=== PATIENT | female | born 1930 | race Hispanic/Latino ===

== ENCOUNTER 2017-09-18 18:42 | Inpatient (IN) | payer MEDICARE, OTHER ==
[2017-09-18] MEDS ORDERED: Sodium Chloride 0.9% 1,000 ML IV STA ×2 (19:37→23:40)
[2017-09-18 20:07] LABS: BASO # 0.02 K/mm3 (0.0-2.0); BASO % 0.2 % (0.0-3.0); EOS # 0.1 (0.0-0.7); EOS % 0.6 % (1.5-5.0); GRAN # 9.95 (1.4-6.5); GRAN % 80.4 % (50.0-68.0); HEMATOCRIT 29.4 % (36.0-48.0); LYMPH # 1.2 (1.2-3.4); LYMPH % 9.4 % (22.0-35.0); MEAN CELL VOLUME 76.2 fl (80.0-105.0); MEAN CORPUSCULAR HEMOGLOBIN 23.1 pg (25.0-35.0); MEAN CORPUSCULAR HGB CONC 30.3 g/dl (31.0-37.0); MEAN PLATELET VOLUME 8.9 fl (7.0-11.0); MONO # 1.2 (0.1-0.6); MONO % 9.4 % (1.0-6.0); RED CELL DISTRIBUTION WIDTH 16.7 % (11.5-14.5); WHITE BLOOD COUNT 12.4 10^3/ul (4.5-11.0)
[2017-09-18 20:21] LABS: ALB/GLOB RATIO 1.1 (1.1-1.8); ALKALINE PHOSPHATASE 78 U/L (38-126); ALT/SGPT 25 U/L (7-56); AST/SGOT 25 U/L (14-36); BILIRUBIN,TOTAL 0.8 mg/dL (0.2-1.3); BLOOD UREA NITROGEN 12 mg/dL (7-21); CALCIUM 10.8 mg/dL (8.4-10.5); CARBON DIOXIDE 32 mmol/L (21-33); CHLORIDE 94 mmol/L (98-107); GFR AFRICAN-AMERICAN > 60; GLUCOSE,RANDOM 191 mg/dL (70-110); POTASSIUM 3.9 mmol/L (3.6-5.0); SODIUM 134 mmol/L (132-148); TOTAL PROTEIN 5.9 g/dL (5.8-8.3)
[2017-09-18 20:23] LABS: INR 1.33 (0.93-1.08); PARTIAL THROMBOPLASTIN TIME 29.2 Seconds (25.1-36.5)
[2017-09-18 20:37] LABS: TROPONIN I < 0.01 ng/mL
--- NOTE | 2017-09-18 21:47 | CT ---
EXAM: CT Head Without Intravenous Contrast CLINICAL HISTORY: 87 years old, female; Injury or trauma; Fall; Initial encounter; Sprain or strain; Additional info: Recent fall TECHNIQUE: Axial computed tomography images of the head/brain without intravenous contrast. All CT scans at this facility use one or more dose reduction techniques, viz.: automated exposure control; ma/kV adjustment per patient size (including targeted exams where dose is matched to indication; i.e. head); or iterative reconstruction technique. COMPARISON: No relevant prior studies available. FINDINGS: Brain: No acute intracranial hemorrhage. Age-appropriate periventricular white matter disease. No edema. 9 x 12 mm dural based calcified focus within the left posterior parietal lobe, likely representing a meningioma. Ventricles: Age-appropriate ventriculomegaly. Bones: No acute displaced fracture. Sinuses: Unremarkable as visualized. No acute sinusitis. Mastoid air cells: Unremarkable as visualized. No mastoid effusion. IMPRESSION: No acute intracranial hemorrhage, or suspicious mass effect. Findings within the left cerebral hemisphere suggesting a small calcified meningioma for which comparison with prior imaging is suggested.
--- NOTE | 2017-09-18 21:52 | CT ---
EXAM: CT Pelvis Without Intravenous Contrast CLINICAL HISTORY: 87 years old, female; Injury or trauma; Fall; Initial encounter; Sprain or strain; Bilateral; Pelvic region; Additional info: R/O frx TECHNIQUE: Axial computed tomography images of the pelvis without intravenous contrast. All CT scans at this facility use one or more dose reduction techniques, viz.: automated exposure control; ma/kV adjustment per patient size (including targeted exams where dose is matched to indication; i.e. head); or iterative reconstruction technique. Coronal and sagittal reformatted images were created and reviewed. COMPARISON: CT - ABD PELVIS PO IV CONTRAST 2016-12-17 11:23 FINDINGS: Bowel: No obstruction. No mucosal thickening. Appendix: The appendix is not definitively visualized, however no pericecal inflammatory change is identified to suggest the presence of acute appendicitis. Intraperitoneal space: Soft tissue attenuation mass within the left retroperitoneum, extending to the pelvis. This mass demonstrates mass effect on the adjacent intraperitoneal cavity. Bladder: Thickened and irregular. Reproductive: Calcified fibroids. Bones/joints: No acute fracture. Within the left iliac bone, are multiple lytic and sclerotic lesions with associated soft tissue attenuation mass, largely unchanged from 12/17/2016. Soft tissues: Moderate anasarca. Vasculature: Calcified atherosclerotic disease. No lower abdominal aortic aneurysm. No pathologically enlarged lymph nodes. IMPRESSION: No acute fracture. Progression of the previously noted soft tissue attenuation mass within the left retroperitoneum with adjacent lytic and sclerotic change in the left iliac bone.
--- NOTE | 2017-09-18 22:27 | ED PDOC ---
Arrival/HPI - General Chief Complaint: Weakness/Neurological Deficit Time Seen by Provider: 09/18/17 18:46 Historian: Patient, Family, Other (Home health aid) - History of Present Illness Narrative History of Present Illness (Text): 09/18/17 18:56 87 year old female, whose past medical history includes, colon cancer, chronic constipation, early dementia, hypertension, and flank mass, pathology otherwise not specified, presents to the emergency department for alteration of menial status in which she was found to be slightly confused and talking about her parents. In other inappropriate statements, there was several days increasingly bed bound, insomnolent, decreased PO intact, and worsening weakness. There is also consistent complaints of right shoulder pain, right hip and upper lateral thigh pain. On note, patient herself anal x3 now compliant of inability to walk. She states "she hasn't walked since " and overwhelming weakness. Family noted 1/2 weeks ago numerous falls with possible head trauma. None with loss of consciousness. Patient is refusing any medical attention at this time. Also note, patient son had been giving her possibly Opiod pain medicine last night that has not been prescribed to her specifically. Home health aid states patient has suffered two melenic bowel movements. Time/Duration: Other (today) Symptom Onset: Gradual Symptom Course: Unchanged Activities at Onset: Light Context: Home Past Medical History - Provider Review Nursing Documentation Reviewed: Yes - Infectious Disease Hx of Infectious Diseases: None - Cardiac Hx Hypertension: Yes - Pulmonary Hx Respiratory Disorders: Yes Hx Emphysema: Yes Hx Pneumonia: Yes (x 3 last episode 6 years ago) - Neurological Hx Neurological Disorder: No - HEENT Hx HEENT Disorder: Yes Hx Cataracts: Yes (Bilateral IOL) - Renal Hx Renal Disorder: No - Endocrine/Metabolic Hx Endocrine Disorders: Yes Hx Diabetes Mellitus Type 2: Yes - Hematological/Oncological Hx Blood Disorders: Yes Hx Blood Transfusions: Yes (During shoulder sx) Hx Blood Transfusion Reaction: No Hx Shingles: Yes (years ago) - Integumentary Hx Dermatological Disorder: Yes Other/Comment: Dry skin - Musculoskeletal/Rheumatological Hx Musculoskeletal Disorders: Yes Hx Arthritis: Yes Hx Fractures: Yes (Right shoulder) - Gastrointestinal Hx Gastrointestinal Disorders: Yes Hx Gall Bladder Disease: Yes Other/Comment: Constipation. Colon CA- New diagnosis - Genitourinary/Gynecological Hx Genitourinary Disorders: Yes Other/Comment: Vaginal fistula post delivery, Dysuria - Psychiatric Hx Psychophysiologic Disorder: No Hx Substance Use: No - Surgical History Hx Cataract Extraction: Yes Hx Cholecystectomy: Yes Hx Orthopedic Surgery: Yes (Right shoulder ORIF) - Anesthesia Hx Anesthesia: Yes Hx Anesthesia Reactions: No Hx Malignant Hyperthermia: No Family/Social History - Physician Review Nursing Documentation Reviewed: Yes Smoking Status: Former Smoker Hx Alcohol Use: No Hx Substance Use: No Allergies/Home Meds Allergies/Adverse Reactions: Allergies No Known Allergies Allergy (Verified 09/18/17 18:53) Home Medications: Home Meds Medication Instructions Recorded Confirmed Glimepiride [Amaryl] 4 mg PO BID 11/30/16 09/18/17 Sitagliptin Phos/Metformin HCl 1 tab PO BID 11/30/16 09/18/17 [Janumet 50-1,000 mg Tablet] Mv,Min10/Folic Acid/D3/Ala/Lut 1 tab PO DAILY 09/18/17 09/18/17 [Strovite One Caplet] Tramadol HCl/Acetaminophen 37.5 mg PO TID 09/18/17 09/18/17 [Tramadol-Acetaminophn 37.5-325] Review of Systems - Physician Review All systems were reviewed & negative as marked: Yes - Review of Systems Systems not reviewed;Unavailable: Dementia (Confused) Constitutional: Normal Respiratory: Normal Gastrointestinal: Appetite Changes Genitourinary Female: absent: Dysuria, Frequency, Hematuria Musculoskeletal: Other (Right shoulder pain, right hip and right upper lateral thigh pain) Neurological: Gait Changes, Other (weakness). absent: Headache, Dizziness Physical Exam Vital Signs Temp Pulse Resp BP Pulse Ox 09/18/17 20:45 93 H 20 145/71 99 09/18/17 19:52 99.6 F 09/18/17 18:45 98.8 F 110 H 20 152/88 H 92 L Temperature: Afebrile Blood Pressure: Hypertensive Pulse: Tachycardic Respiratory Rate: Normal Appearance: Positive for: Well-Appearing, Non-Toxic Pain Distress: None Mental Status: Positive for: Alert and Oriented X 3 Finger Stick Blood Glucose: 249 - Systems Exam Head: Present: Atraumatic, Normocephalic Pupils: Present: PERRL Extroacular Muscles: Present: EOMI Conjunctiva: Present: Normal Mouth: Present: Dry (Mucosa pallad d) Neck: Present: Normal Range of Motion Respiratory/Chest: Present: Clear to Auscultation, Good Air Exchange. No: Respiratory Distress, Accessory Muscle Use Cardiovascular: Present: Murmurs (4/6 Systolic ejection murmur left sternal boarder), Normal S1, S2 Abdomen: Present: Normal Bowel Sounds. No: Tenderness, Distention, Peritoneal Signs Rectal: Present: Other (Guacic negative. Medium Brown Stool) Back: Present: Normal Inspection Upper Extremity: Present: Normal Inspection. No: Cyanosis, Edema Lower Extremity: Present: Normal Inspection, Other (Right hip tenderness to palpation. No pain internal/external rotation or axial loading). No: Edema Neurological: Present: GCS=15, CN II-XII Intact, Speech Normal Skin: Present: Warm, Dry, Normal Color. No: Rashes Psychiatric: Present: Alert, Oriented x 3, Normal Insight, Normal Concentration Medical Decision Making ED Course and Treatment: 09/18/17 18:56 Impression: 87 year old female presents for weakness/neurological deficits. Patient also comlains of right shoulder pain and right hip upper lateral thigh pain Plan: -- CT Head -- CT Pelvis -- Labs -- Chest One view -- IV Fluids -- Blood Culture -- IV Fluids -- Blood Culture -- Urine Culture -- Hip Right X-ray -- Pelvis x-ray -- Shoulder right x-ray -- Urinalysis -- Reassess and disposition Progress Notes: - Lab Interpretations Lab Results: 09/18/17 18:50 09/18/17 18:50 Lab Results 09/18/17 18:55: POC Glucose (mg/dL) 246 H 09/18/17 18:50: Sodium 134, Potassium 3.9, Chloride 94 L, Carbon Dioxide 32, Anion Gap 12, BUN 12, Creatinine 0.8, Est GFR ( Amer) > 60, Est GFR (Non- Af Amer) > 60, Random Glucose 191 H, Calcium 10.8 H, Total Bilirubin 0.8, AST 25 , ALT 25, Alkaline Phosphatase 78, Troponin I < 0.01, Total Protein 5.9, Albumin 3.0, Globulin 2.8, Albumin/Globulin Ratio 1.1 09/18/17 18:50: PT 14.6 H, INR 1.33 H, APTT 29.2 09/18/17 18:50: WBC 12.4 H D, RBC 3.86, Hgb 8.9 L, Hct 29.4 L, MCV 76.2 L, MCH 23.1 L, MCHC 30.3 L, RDW 16.7 H, Plt Count 370, MPV 8.9, Gran % 80.4 H, Lymph % (Auto) 9.4 L, Walker % (Auto) 9.4 H, Eos % (Auto) 0.6 L, Baso % (Auto) 0.2, Gran # 9.95 H, Lymph # 1.2, Walker # 1.2 H, Eos # 0.1, Baso # 0.02 - RAD Interpretation Radiology Orders: 09/18/17 19:33 HEAD W/O CONTRAST [CT] Stat 09/18/17 19:34 CHEST ONE VIEW [RAD] Stat 09/18/17 19:36 Hip Right [HIP MIN 2V W/ PELVIS RT] [RAD] Stat 09/18/17 19:38 PELVIS W/O PO OR IV CONTRAST [CT] Stat 09/18/17 20:17 SHOULDER RIGHT [RAD] Stat - Medication Orders Current Medication Orders: Discontinued Medications Acetaminophen (Tylenol 325mg Tab) 650 mg PO ONCE ONE Stop: 09/18/17 19:38 Last Admin: 09/18/17 19:52 Dose: 650 mg MAR Pain/Vitals Document 09/18/17 19:52 JOL (Rec: 09/18/17 19:52 JOL [id number]) Vitals Temperature (97.6 F-99.6 F) 99.6 F Temperature Source Rectal Sodium Chloride (Sodium Chloride 0.9%) 1,000 mls @ 999 mls/hr IV .Q1H1M STA Stop: 09/18/17 20:37 Last Admin: 09/18/17 19:52 Dose: 999 mls/hr eMAR Start Stop Document 09/18/17 19:52 JOL (Rec: 09/18/17 19:52 JOL [id number]) Intravenous Solution Start Date 09/18/17 Start Time 19:52 End Date 09/18/17 End time 20:53 Total Infusion Time 61 - Scribe Statement The provider has reviewed the documentation as recorded by the Scribe Abiel Jaime All medical record entries made by the Scribe were at my direction and personally dictated by me. I have reviewed the chart and agree that the record accurately reflects my personal performance of the history, physical exam, medical decision making, and the department course for this patient. I have also personally directed, reviewed, and agree with the discharge instructions and disposition. Disposition/Present on Arrival - Present on Arrival History of DVT/PE: No History of Uncontrolled Diabetes: No Urinary Catheter: No History of Decub. Ulcer: No History Surgical Site Infection Following: None - Disposition Referrals: Tano Egan MD [Primary Care Provider] - Follow up with primary Forms: [employer] (Yoruba)
[2017-09-18 23:02] LABS: URINE BILIRUBIN SMALL (NEGATIVE); URINE BLOOD NEGATIVE (NEGATIVE); URINE GLUCOSE (UA) NEGATIVE (NEGATIVE); URINE KETONE 15 mg/dL (NEGATIVE); URINE LEUKOCYTE ESTERASE NEGATIVE Leu/uL (NEGATIVE); URINE PROTEIN 30 mg/dL (<30 mg/dL)
[2017-09-18 23:09] LABS: URINE APPEARANCE CLEAR (CLEAR); URINE COLOR LIGHT YELLOW (YELLOW)
[2017-09-18 23:42] LABS: URINE BACTERIA TRACE (NEG); URINE RBC 0 - 2 /hpf (0-2)
[2017-09-19 03:11] VITALS: BMI 27.3
--- NOTE | 2017-09-19 08:51 | RAD ---
PROCEDURE: CHEST RADIOGRAPH, 1 VIEW HISTORY: routin emex exam COMPARISON: 04/01/2016. FINDINGS: LUNGS: The lungs are well inflated. There is diffuse pulmonary venous congestion and interstitial thickening. There is an apparent 2.3 cm round opacity in the left upper lobe. PLEURA: No pneumothorax or pleural fluid seen. CARDIOVASCULAR: The heart is normal in size. Atherosclerotic aortic arch calcifications are present. OSSEOUS STRUCTURES: Status post right shoulder arthroplasty. There is degenerative osteoarthrosis in the left glenohumeral joint VISUALIZED UPPER ABDOMEN: Normal. OTHER FINDINGS: None. IMPRESSION: Mild pulmonary venous congestion and interstitial disease. Apparent 2.3 cm round opacity in the left upper lobe, CT scan of the thorax without intravenous contrast is recommended for further evaluation. The final report was tagged to the PA review folder.
[2017-09-19 09:29] LABS: HEMATOCRIT 27.6 % (36.0-48.0); MEAN CELL VOLUME 76.7 fl (80.0-105.0); MEAN CORPUSCULAR HEMOGLOBIN 23.6 pg (25.0-35.0); MEAN CORPUSCULAR HGB CONC 30.8 g/dl (31.0-37.0); MEAN PLATELET VOLUME 8.8 fl (7.0-11.0); RED CELL DISTRIBUTION WIDTH 16.5 % (11.5-14.5); WHITE BLOOD COUNT 13.3 10^3/ul (4.5-11.0)
--- NOTE | 2017-09-19 10:24 | CARD ---
APPROVED REPORT EKG Measurement Heart [id number] <Conclusion> Sinus tachycardia Otherwise normal ECG
--- NOTE | 2017-09-19 10:34 | RAD ---
PROCEDURE: Right Hip and pelvis Radiographs. HISTORY: fall COMPARISON: None. FINDINGS: BONES: Normal. No fracture. JOINTS: Normal. SOFT TISSUES: Normal. OTHER FINDINGS: None. IMPRESSION: Negative study
--- NOTE | 2017-09-19 10:40 | RAD ---
PROCEDURE: Radiographs of the Right Shoulder HISTORY: shoulder pain COMPARISON: No prior. FINDINGS: BONES: There is a right shoulder prosthesis. There is no fracture or loosening through the prosthesis. No dislocation. JOINTS: Normal. Glenohumeral and acromioclavicular joints preserved. No osteoarthritis. SOFT TISSUES: Normal. OTHER FINDINGS: None. IMPRESSION: There is a right shoulder prosthesis. There is no fracture or loosening through the prosthesis. No dislocation.
[2017-09-19] MEDS ORDERED: Barium Sulfate Susp 2.1% w/v, 2.0% w/w 450 mL Bottle PO ONE (12:46)
--- NOTE | 2017-09-19 13:04 | CP.PCM.CON ---
History of Present Illness - History of Present Illness History of Present Illness: Palliative consult requested by Dr Charly Cook Reason:Goals of care/advance care planning 87 year old female with history of colon cancer, constipation, dementia,HTN and flank mas presenter with altered mental status. Family states for the patient has been progressively lethargic, bedbound, weak with poor appetite for a few days. Family also reports the patient to have had numerous falls in the week prior to admission. CT of head no acute findings. Pelvis x ray no acute fx, progression of soft tissue mass within left retroperitonuem with adjacent lytic and sclerotic change in left iliac bone. Chest x ray showed pulmonary congestion, 2.3cm round opacity in SWATHI. PMHX: colon cancer, HTN, dementia, constipation, flank mass pathology unknown Social History: Former smoker, no alcohol or drug use. , lives with daughter. Family History Non contributory. Review of Systems: As per HPI, otherwise all other system reviewed and are normal Past Patient History - Infectious Disease Hx of Infectious Diseases: None - Past Medical History & Family History Past Medical History?: Yes - Past Social History Smoking Status: Never Smoked - CARDIAC Hx Cardiac Disorders: Yes Hx Hypertension: Yes - PULMONARY Hx Respiratory Disorders: Yes Hx Emphysema: Yes Hx Pneumonia: Yes (x 3 last episode 6 years ago) - NEUROLOGICAL Hx Neurological Disorder: Yes Hx Dementia: Yes - HEENT Hx HEENT Problems: Yes Hx Cataracts: Yes (Bilateral IOL) - RENAL Hx Chronic Kidney Disease: No - ENDOCRINE/METABOLIC Hx Endocrine Disorders: Yes Hx Diabetes Mellitus Type 2: Yes - HEMATOLOGICAL/ONCOLOGICAL Hx Blood Disorders: Yes Hx Shingles: Yes (years ago) - INTEGUMENTARY Hx Dermatological Problems: Yes Other/Comment: Dry skin - MUSCULOSKELETAL/RHEUMATOLOGICAL Hx Musculoskeletal Disorders: Yes Hx Arthritis: Yes Hx Falls: Yes Hx Fractures: Yes (Right shoulder) Hx Unsteady Gait: Yes - GASTROINTESTINAL Hx Gastrointestinal Disorders: Yes Hx Gall Bladder Disease: Yes Other/Comment: Constipation. Colon CA- New diagnosis - GENITOURINARY/GYNECOLOGICAL Hx Genitourinary Disorders: Yes Other/Comment: Vaginal fistula post delivery, Dysuria - PSYCHIATRIC Hx Psychophysiologic Disorder: No - SURGICAL HISTORY Hx Surgeries: Yes Hx Cholecystectomy: Yes Hx Orthopedic Surgery: Yes (Right shoulder ORIF) - ANESTHESIA Hx Anesthesia: Yes Hx Anesthesia Reactions: No Hx Malignant Hyperthermia: No Meds Allergies/Adverse Reactions: Allergies Allergy/AdvReac Type Severity Reaction Status Date / Time No Known Allergies Allergy Verified 09/18/17 18:53 - Medications Medications: Current Medications Acetaminophen (Tylenol 325mg Tab) 650 mg PO Q6H PRN PRN Reason: Pain, Mild (1-3) Amlodipine Besylate (Norvasc) 10 mg PO DAILY CARLY Insulin Human Lispro (Humalog Med) 0 units SC ACHS CARLY PRN Reason: Protocol Polyethylene Glycol (Miralax) 17 gm PO DAILY CARLY Physical Exam - Constitutional Appears: Chronically Ill - Head Exam Head Exam: NORMAL INSPECTION - Eye Exam Eye Exam: Normal appearance, PERRL - ENT Exam ENT Exam: Mucous Membranes Moist, Normal Oropharynx - Neck Exam Neck exam: Positive for: Normal Inspection - Respiratory Exam Respiratory Exam: Clear to Auscultation Bilateral, NORMAL BREATHING PATTERN - Cardiovascular Exam Cardiovascular Exam: REGULAR RHYTHM, +S1, +S2 - GI/Abdominal Exam GI & Abdominal Exam: Normal Bowel Sounds, Soft - Extremities Exam Extremities exam: Positive for: normal inspection, pedal pulses present - Back Exam Back exam: NORMAL INSPECTION - Neurological Exam Neurological exam: Alert - Skin Skin Exam: Dry, Pallor, Warm - Additional Findings Additional findings: Palliative performance scale rating 40% Results - Vital Signs Recent Vital Signs: Last Vital Signs Temp 97.1 F L 09/19/17 07:30 Pulse 110 H 09/19/17 07:30 Resp 24 09/19/17 07:30 BP 185/95 H 09/19/17 07:30 Pulse Ox 93 L 09/19/17 07:30 - Labs Result Diagrams: 09/19/17 08:46 09/18/17 18:50 Labs: Laboratory Results - last 24 hr 09/19/17 08:46 WBC 13.3 H RBC 3.60 Hgb 8.5 L Hct 27.6 L MCV 76.7 L MCH 23.6 L MCHC 30.8 L RDW 16.5 H Plt Count 324 MPV 8.8 Assessment & Plan - Assessment and Plan (Free Text) Assessment: 87 year old female wit history of dementia, frequent falls, colon cancer, left flank mass admitted with altered mental status, decreased appetite. Patient is alert, oriented to place self and time. Denies pain. Offers no other complaints Patients niece and son at bedside Discussion ensued regarding advance care planning and resuscitation wishes. Patient states she does not want CPR/ intubation or permanent feeding tube. Son is in agreement with patients wishes. POLST directive explained to all, questions answered. POLST directive completed. Patient is DNR/DNI. Patients son Prabhakar Hawk is POA. Time spent with patient and family in goals of care discussion and advance care planning, 30 minutes Plan: Palliative support Advance care planning, POLST: DNR/DNI.
--- NOTE | 2017-09-19 17:45 | CT ---
PROCEDURE: CT Abdomen and Pelvis with contrast HISTORY: left flank pain COMPARISON: 12/17/2016 CT abdomen and pelvis. Summary of findings on the comparison examination: There is a fluid collection in the abdominal wall of the left flank measuring 5 x 7.4 cm. This is unchanged. This is suspicious for an abscess. This measures 20 Hounsfield units in density consistent with fluid. There is some anterior displacement of the left kidney and the descending colon. This could represent an abscess or necrotic tumor. TECHNIQUE: Contrast dose: Unenhanced study. Neither oral nor intravenous contrast administered. Radiation dose: Total exam DLP = 983.85 mGy-cm. This CT exam was performed using one or more of the following dose reduction techniques: Automated exposure control, adjustment of the mA and/or kV according to patient size, and/or use of iterative reconstruction technique. FINDINGS: LOWER THORAX: New, small right pleural effusion and associated atelectasis. No suspicious pulmonary nodules or masses. LIVER: Unremarkable. No gross lesion or ductal dilatation. GALLBLADDER AND BILE DUCTS: Status post cholecystectomy. No abnormality is seen in the gallbladder fossa. PANCREAS: Unremarkable. No gross lesion or ductal dilatation. SPLEEN: Unremarkable. ADRENALS: Unremarkable. No mass. KIDNEYS AND URETERS: Unremarkable. No hydronephrosis. No solid mass. Incidental finding(s): Stable left renal cyst. This measures 6.1 by 6.6 cm VASCULATURE: Unremarkable. No aortic aneurysm. BOWEL: Diverticulosis without an acute inflammatory component or other associated pathologic process. APPENDIX: Normal appendix. PERITONEUM: Unremarkable. No free fluid. No free air. LYMPH NODES: Unremarkable. No enlarged lymph nodes. BLADDER: Unremarkable. REPRODUCTIVE: Calcified uterine fibroids. BONES: Infiltrative and permeative pattern affecting the left iliac crest associate with large tumor mass which has increased considerably since the prior study. The mass is now assumed a more diffuse and infiltrative nature and in addition to destroying a adjacent iliac bone PA now courses medially to a paraspinous location affecting the left psoas muscle, displacing the left kidney anteriorly, the tumor mass likely involves will iliopsoas and iliacus muscle on the left. Sclerotic focus affecting T12 vertebral body a finding not seen previously and therefore suspicious for metastatic disease. Stable grade 1 anterolisthesis L4-5. OTHER FINDINGS: The previously described retroperitoneal, flank mass measured 5.2 x 7.4 cm. At a comparable location on the axial images the mass measures 7.2 x 9.9 cm. Coronal orthogonal measurements are approximately 8.5 x 11.7 cm. This compares to the prior coronal measurement 6.2 x 8.8 cm. Progress 0 and I, anasarca. IMPRESSION: Progression in tumor mass affecting left psoas, iliopsoas and iliacus muscle. Destruction of left iliac bone. Sclerotic metastatic lesion with a permeative pattern T12 vertebral body. Negative study for obstructive uropathy. Progressive displacement of the left kidney by tumor mass.
[2017-09-19] MEDS: HYDROmorphone 0.5 mg/0.5 ml ISec IVP PRN (20:06)
[2017-09-19] MEDS: Insulin Lispro (humaLOG) MEDIUM Coverage SC SCH (22:15)
[2017-09-20] MEDS: HYDROmorphone 0.5 mg/0.5 ml ISec IVP PRN ×4 (02:45→18:00)
[2017-09-20] MEDS: Insulin Lispro (humaLOG) MEDIUM Coverage SC SCH ×4 (08:04→22:00)
--- NOTE | 2017-09-20 08:55 | HP ---
HISTORY OF PRESENT ILLNESS: The patient is an 87-year-old seen and examined, son at the bedside, brought to emergency room because of increasing weakness. According to son, she has fallen 6 to 8 times in last 1 week. She has been increasingly weak, poor oral intake and complaint of left lower quadrant pain going on for longtime but got worse. According to son, she has been increasingly confused, has been incoherent and he wants supportive care and keep her comfortable. PAST MEDICAL HISTORY: 1. She was diagnosed with colon cancer in [place] with multiple biopsies, but she was given option not to pursue aggressively given her age. 2. Chronic constipation. 3. Mild dementia. 4. Hypertension. 5. Deconditioning and difficulty walking. ALLERGIES: THE PATIENT IS NOT ALLERGIC TO ANY MEDICATIONS. MEDICATIONS AT HOME: She is on tramadol, she is on Janumet and multivitamin and Amaryl. SOCIAL HISTORY: She lives with her son, who lives upstairs and she lives downstairs. REVIEW OF SYSTEMS: Significant for left flank pain, increasing weakness and altered mental status. PHYSICAL EXAMINATION GENERAL: She is awake and alert, answer simple questions. VITAL SIGNS: She is afebrile. Pulse 110, respirations 24 and blood pressure 185/95. LUNGS: Bilateral fair airflow. No rhonchi or crackles. HEART: S1 and S2 audible. ABDOMEN: Soft, left lower quadrant discomfort. NEUROLOGICAL: She is awake and alert, able to communicate. Moves all extremities. LABORATORY DATA: Her WBC 13.3, hemoglobin 8.5, hematocrit 27.6 and platelet of 324. Chemistry; sodium 134, potassium 3.9, chloride 94, CO2 of 32, BUN 12 and creatinine of 0.8. Blood sugar of 246. Urine shows small bilirubin and no leukocyte. CT scan of the abdomen and pelvis were done earlier this year November of 2016 that shows there is fluid collection in the abdominal wall of the left flank measuring 5 x 7.4 cm that is suspicious for abscess, the measurement. There is anterior displacement of left kidney. ASSESSMENT: 1. Altered mental status. 2. Left flank pain. 3. History of hypertension. 4. Non-insulin dependent diabetes. 5. Leukocytosis, etiology unclear. PLAN: I will continue the patient on IV fluids. We will get for Palliative Care. I request CT scan of the abdomen and pelvis, although son states that she was diagnosed with colon CA and he does not want anything aggressive done. I will after CT scan result is available. We will monitor her blood sugar and reevaluate the patient. Shivani Cook MD
[2017-09-20] MEDS: POLYETHYLENE GLYCOL 3350 17 GM/Dose PACKET PO SCH (09:31)
[2017-09-20 10:18] LABS: MEAN CELL VOLUME 76.9 fl (80.0-105.0); MEAN CORPUSCULAR HEMOGLOBIN 23.4 pg (25.0-35.0); MEAN CORPUSCULAR HGB CONC 30.4 g/dl (31.0-37.0); MEAN PLATELET VOLUME 8.8 fl (7.0-11.0); RED CELL DISTRIBUTION WIDTH 16.7 % (11.5-14.5); WHITE BLOOD COUNT 11.3 10^3/ul (4.5-11.0)
[2017-09-20 11:17] LABS: BLOOD UREA NITROGEN 8 mg/dL (7-21); CALCIUM 10.7 mg/dL (8.4-10.5); CARBON DIOXIDE 33 mmol/L (21-33); CHLORIDE 98 mmol/L (98-107); GFR AFRICAN-AMERICAN > 60; GLUCOSE,RANDOM 127 mg/dL (70-110); POTASSIUM 4.1 mmol/L (3.6-5.0); SODIUM 139 mmol/L (132-148)
[2017-09-20] MEDS: Albuterol-Ipratrop 3 mg / 0.5 (3 ml) UD IH PRN (13:29)
[2017-09-20] MEDS: Morphine 15 mg SR Tab PO SCH ×2 (13:34→22:00)
[2017-09-21] MEDS: HYDROmorphone 0.5 mg/0.5 ml ISec IVP PRN ×2 (01:20→05:17)
[2017-09-21] MEDS ORDERED: HYDROmorphone 1 mg/ml ISec IVP STA (08:32)
[2017-09-21] MEDS: Insulin Lispro (humaLOG) MEDIUM Coverage SC SCH ×3 (08:40→17:35)
[2017-09-21] MEDS: Albuterol-Ipratrop 3 mg / 0.5 (3 ml) UD IH PRN (09:38)
[2017-09-21] MEDS ORDERED: Levalbuterol 1.25 MG/3 ML Inhal Soln UD IH PRN (10:39)
[2017-09-21] MEDS: POLYETHYLENE GLYCOL 3350 17 GM/Dose PACKET PO SCH (11:15)
[2017-09-21] MEDS: Morphine 15 mg SR Tab PO SCH (11:15)
--- NOTE | 2017-09-21 11:43 | PN ---
SUBJECTIVE: The patient is 87 years old, seen and examined, lying in bed. She states she has some relief in pain, but it hurts when she moves. PHYSICAL EXAMINATION: VITAL SIGNS: She is afebrile, pulse 99, respirations 20, blood pressure 163/80. LUNGS: Bilateral soft rhonchi. HEART: S1 and S2, audible. ABDOMEN: Soft. Left lower quadrant discomfort. NEUROLOGIC: She is awake and alert. Answers simple question. LABORATORY DATA: WBC is 11.3, hemoglobin 8.5, hematocrit 28, platelets of 359. Chemistry: Sodium 139, potassium 4.1, chloride 98, CO2 of 33, BUN 8, creatinine 0.7, blood sugar of 168, calcium is 10.7. 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 ASSESSMENT: 1. Left pelvic mass. The patient's son states that she has multiple biopsies done in the past. 2. Intractable pain. 3. History of hypertension. 4. Malnutrition. 5. Chronic constipation. 6. Deconditioning and difficulty walking. PLAN: Start the patient on MS Contin, start small dose of Duragesic patch and give her Dilaudid in between for breakthrough pain. I will discuss with the patient's son for hospice care. Shivani Cook MD
[2017-09-21] MEDS ORDERED: Albuterol-Ipratrop 3 mg / 0.5 (3 ml) UD IH SCH (14:00)
--- NOTE | 2017-09-21 16:13 | PN ---
DATE: SUBJECTIVE: The patient is 87-year-old, seen and examined, seems to be comfortable, and just brought pain medication. Family by the beside. PHYSICAL EXAMINATION: VITAL SIGNS: The patient is afebrile, pulse 90, respirations 18, and blood pressure 127/61. LUNGS: Bilateral fair airflow. No rhonchi or crackle. HEART: S1 and S2 audible. ABDOMEN: Soft and nontender. No rebound. No guarding except left lower quadrant palpable discomfort and hurts on moving left hip. LABORATORY DATA: There is no new lab available today. Blood sugar is 205. ASSESSMENT: 1. 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 2. Leukocytosis. PLAN: The patient is currently on nebulizer treatment. She is on MS Contin, we will continue that. I will start her on Duragesic patch. Son, Prabhakar is by the bedside and he want to talk about hospice, they are not sure whether if they want in hospital or facility because he states he works and he cannot be home for home hospice. Shivani Cook MD
[2017-09-21 17:09] VITALS: BP 135/80; PULSE 103; RESP 20; TEMP 98; O2SAT 95
== END 2017-09-21 19:15 | DRG 375 ==
LOC: ED 18:42 → ERH 23:40 → 5RNO 09-19 01:18
PROVIDERS: ADMIT Internal Medicine; ATTEND Internal Medicine
PROC: 3E0F7GC Introduction of Other Therapeutic Substance into Respiratory Tract, Via Natural or Artificial Opening (ICD-10-PCS; principal; 2017-09-20)
DX: C18.9 Malignant neoplasm of colon, unspecified (principal); R53.1 Weakness; E46 Unspecified protein-calorie malnutrition; F03.90 Unspecified dementia, unspecified severity, without behavioral disturbance, psychotic disturbance, mood disturbance, and anxiety; I10 Essential (primary) hypertension; D72.829 Elevated white blood cell count, unspecified; E11.9 Type 2 diabetes mellitus without complications; J43.9 Emphysema, unspecified; K59.09 Other constipation; R26.2 Difficulty in walking, not elsewhere classified; Z66 Do not resuscitate; R29.6 Repeated falls; R19.00 Intra-abdominal and pelvic swelling, mass and lump, unspecified site; Z79.84 Long term (current) use of oral hypoglycemic drugs; Z74.01 Bed confinement status; Z87.01 Personal history of pneumonia (recurrent); Z87.891 Personal history of nicotine dependence; Z90.49 Acquired absence of other specified parts of digestive tract